=== PATIENT | male | born 1990 | race African-American/Black ===

== ENCOUNTER 2021-12-01 23:15 | Emergency (ER) | payer SELFPAY ==
[~2021-12-01] VITALS: Ht 177.8 cm; Wt 82.0 kg
[2021-12-01 23:37] VITALS: BP 131/76
== END 2021-12-01 23:45 ==
LOC: ER 23:15
DX: T14.8XXA Other injury of unspecified body region, initial encounter (principal); M25.561 Pain in right knee; Y04.0XXA Assault by unarmed brawl or fight, initial encounter; Y93.89 Activity, other specified; Y92.89 Other specified places as the place of occurrence of the external cause; Y99.8 Other external cause status
CPT/HCPCS: 99283